=== PATIENT | male | born 1955 | race Caucasian/White ===

== ENCOUNTER 2021-09-17 10:47 | Emergency (ER) | payer MEDICARE ==
[~2021-09-17] VITALS: Ht 170.2 cm; Wt 63.5 kg
--- NOTE | 2021-09-17 11:35 | NUR ---
PT SEEN AND EXAMINED BY DR POLO.
[2021-09-17 13:06] VITALS: BP 116/77
--- NOTE | 2021-09-17 13:06 | NUR ---
Patient discharged to home in stable condition. Written and verbal after care instructions given. Patient verbalizes understanding of instructions. Stressed follow up or return to ER for worsening s/s.
== END 2021-09-17 13:07 | disposition home or self-care (01) ==
LOC: ER 10:47
DX: G56.22 Lesion of ulnar nerve, left upper limb (principal)
CPT/HCPCS: 73080; A4663